=== PATIENT | female | born 1980 | race African-American/Black ===

== ENCOUNTER 2022-10-20 06:35 | Emergency (ER) | payer SELFPAY ==
[~2022-10-20] VITALS: Ht 170.2 cm; Wt 96.0 kg
[2022-10-20 06:44] VITALS: BP 137/93
== END 2022-10-20 11:44 | disposition home or self-care (01) ==
LOC: ER 06:35
DX: R10.11 Right upper quadrant pain (principal); R11.2 Nausea with vomiting, unspecified; I10 Essential (primary) hypertension
CPT/HCPCS: 99281